=== PATIENT | male | born 1990 | race Two or more races ===

== ENCOUNTER 2018-12-06 01:57 | Emergency (ER) | payer OTHER ==
[~2018-12-06] VITALS: Ht 177.8 cm; Wt 81.6 kg
--- NOTE | 2018-12-06 02:00 | NUR ---
REBEKAH is here.
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
[2018-12-06 02:14] VITALS: BP 104/75
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
[2018-12-06] MEDS ORDERED: Morphine Sulfate 4mg/ml Inj (IV USE ONLY) IVP ONE ×2 (03:15→05:15)
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
[2018-12-06 03:35] LABS: ANION GAP 13 mmol/L (5-15); BLOOD UREA NITROGEN 14 mg/dL (7-18); CALCIUM 9.2 MG/DL (8.5-10.1); CARBON DIOXIDE 22 MMOL/L (21-32); CHLORIDE 103 MMOL/L (98-107); CREATININE 1.2 MG/DL (0.55-1.30); POTASSIUM 4.4 MMOL/L (3.5-5.1); SODIUM 138 MMOL/L (136-145)
[2018-12-06 03:39] LABS: APPEARANCE,URINE CLEAR; BILIRUBIN, URINE NEGATIVE (NEGATIVE); COLOR,URINE PALE YELLOW; GLUCOSE, URINE (UA) NEGATIVE (NEGATIVE); KETONES,URINE 1+ (NEGATIVE); LEUKOCYTE ESTERASE ,URINE NEGATIVE (NEGATIVE); NITRITE,URINE NEGATIVE (NEGATIVE); PH,URINE 5 (4.5-8.0); PROTEIN,URINE 2+ (NEGATIVE); UROBILINOGEN,URINE NORMAL MG/DL (0.0-1.0)
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
[2018-12-06 03:43] LABS: HEMATOCRIT 43.1 % (42.0-52.0); HEMOGLOBIN 14.8 G/DL (14.2-18.0); MEAN CORPUSCULAR VOLUME 90 FL (80-99); PLATELET COUNT 300 K/UL (150-450); WHITE BLOOD COUNT 18.6 K/UL (4.8-10.8)
--- NOTE | 2018-12-06 03:59 | NUR ---
Face sheet and CT report faxed to [facility].
--- NOTE | 2018-12-06 04:15 | NUR ---
ED Nurse Note: Patient resting comfortably with sister at bedside. Patient expresses that he would not like to see his finace at this time. She is on the premises however.
--- NOTE | 2018-12-06 05:08 | NUR ---
ED Nurse Note: Report called into [facility]
[2018-12-06 05:16] VITALS: BP 104/75
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
== END 2018-12-06 05:18 | disposition short-term general hospital (02) ==
LOC: EDBD 01:57 → EMR 03:09
DX: S02.32XA Fracture of orbital floor, left side, initial encounter for closed fracture (principal); S02.19XA Other fracture of base of skull, initial encounter for closed fracture; S09.90XA Unspecified injury of head, initial encounter; F10.920 Alcohol use, unspecified with intoxication, uncomplicated; H05.20 Unspecified exophthalmos; Y09 Assault by unspecified means
CPT/HCPCS: 36415; 70450; 70486; 80048; 80307; 81001; 85007; 85025; 85610; 85730; 96374; 96375; 96376; 99285; G0480; J2270; J2405; 80329